=== PATIENT | female | born 1930 | race Caucasian/White ===

== ENCOUNTER → 2016-08-03 | Outpatient (CLI) | payer OTHER, BC ==
[~2016-08-03] MED LIST: ANTIVERT25 MG PO; BAYER CHEWABLE81 MG PO; CALTRATE 600 +1 EAC1 PO; CENTRUM SILVER1 EAC4 PO; CO Q-10100 MG PO; COQ1050 MG; EVISTA PO; FLONASE 0.05%50 MCG NASAL; NEURONTIN 300300 M1 PO; NOLVADEX20 MG PO; NORCO 5-325 TA1 EACH PO; PRILOSEC OTC20 MG PO; TOVIAZ8 MG; ZPAK PO
== END ==
LOC: RAD 02:27
DX: C50.912 Malignant neoplasm of unspecified site of left female breast (principal)

== ENCOUNTER → 2017-01-11 | Outpatient (CLI) | payer OTHER, BC | LOC: RAD 01:17 | DX: Z12.31 Encounter for screening mammogram for malignant neoplasm of breast (principal) ==

== ENCOUNTER → 2018-01-10 | Outpatient (CLI) | payer OTHER, BC | LOC: RAD 10:05 | DX: C50.412 Malignant neoplasm of upper-outer quadrant of left female breast (principal); R92.2 Inconclusive mammogram; M85.80 Other specified disorders of bone density and structure, unspecified site; K21.9 Gastro-esophageal reflux disease without esophagitis; Z17.0 Estrogen receptor positive status [ER+] ==

== ENCOUNTER → 2019-02-08 | Outpatient (CLI) | payer OTHER, BC | LOC: BC 01-12 01:22 → RAD 01:54 | DX: Z12.31 Encounter for screening mammogram for malignant neoplasm of breast (principal) ==

== ENCOUNTER → 2020-03-06 | Outpatient (CLI) | payer OTHER, BC | LOC: BC 07:20 | PROVIDERS: ATTEND Radiology Radiation Oncology | DX: Z12.31 Encounter for screening mammogram for malignant neoplasm of breast (principal); Z78.0 Asymptomatic menopausal state ==